=== PATIENT | male | born 1960 | race Caucasian/White ===

== ENCOUNTER 2019-12-25 01:46 | Outpatient (CLI) | payer OTHER, SELFPAY ==
--- NOTE | 2019-12-25 15:15 | DI.MRI_ITS ---
EXAM: MR UPPER JOINT LT WO CLINICAL HISTORY: consider RC tear M75.42 IMPINGEMENT SYNDROME OF LT SHOULDER. TECHNIQUE: Multiplanar multisequence MRI was performed. COMPARISON: No exams were available for comparison FINDINGS: The exam was limited by patient motion. Patient was in pain during the exam. Accelerated protocol was performed. There is a moderate-sized joint effusion. Fluid is also seen in the subcoracoid and subacromial subdeltoid bursa. There are degenerative changes of the AC joint. There is abnormal th ickening of the supraspinatus tendon. There is a superimposed small full-thickness tear in the mid p ortion. There is fluid seen extending along the infraspinatus tendon but no evidence of a tear. The subscapularis and biceps tendons appear intact. There are degenerative changes of the inferior yoselin oid. There is mild muscle atrophy of the supraspinatus. IMPRESSION: Severe tendinosis of the supraspinatus tendon. Focal full-thickness tear in the mid portion. Mild mu scle atrophy. DATA REPOSITORY:
== END 2019-12-25 02:06 ==
PROVIDERS: PCP Family Medicine; Visit Provider Nurse Practitioner Family
DX: M25.512 Pain in left shoulder (principal); M75.42 Impingement syndrome of left shoulder; M75.82 Other shoulder lesions, left shoulder; M25.412 Effusion, left shoulder; M75.102 Unspecified rotator cuff tear or rupture of left shoulder, not specified as traumatic
CPT/HCPCS: 73221

== ENCOUNTER 2020-03-02 12:57 | Outpatient (CLI) | payer OTHER, SELFPAY ==
--- NOTE | 2020-03-02 10:47 | DI.RAD_ITS ---
EXAM: XR SHOULDER LT COMPLETE 2+V CLINICAL HISTORY: left shoulder bursitis TECHNIQUE: COMPARISON: No exams were available for comparison FINDINGS: Two views were obtained. There is narrowing of the cartilaginous joint space of the glenohumeral sofya nt, there appears to be some chondrocalcinosis. There is some irregularity of the sub chondral artic ular surface of the glenoid. Humeral head appears well maintained as visualized. Moderate osteophyt e formation noted at the acromioclavicular joint. IMPRESSION: Degenerative changes of glenohumeral and AC joint as described above.
== END 2020-03-02 13:17 ==
PROVIDERS: PCP Family Medicine; Visit Provider Student in an Organized Health Care Education/Training Program
DX: M25.512 Pain in left shoulder (principal); M75.52 Bursitis of left shoulder; M19.012 Primary osteoarthritis, left shoulder
CPT/HCPCS: 73030

== ENCOUNTER 2020-03-08 09:38 | Outpatient (CLI) | payer BC, SELFPAY ==
[2020-03-09 18:03] LABS: COVID-19 RT-PCR Result NEGATIVE (Negative)
== END 2020-03-08 09:58 ==
PROVIDERS: PCP Family Medicine; Visit Provider Student in an Organized Health Care Education/Training Program
DX: Z11.59 Encounter for screening for other viral diseases (principal); Z01.818 Encounter for other preprocedural examination
CPT/HCPCS: U0003

== ENCOUNTER 2020-03-11 05:52 | Day surgery (SDC) | payer OTHER, SELFPAY ==
[2020-03-11] VITALS (9 sets, daily range): BP systolic 93–122; BP diastolic 50–89; PULSE 60–70; RESP 16–30; TEMP 36.4–36.7; O2SAT 92–98
[2020-03-11] MEDS: Lactated Ringers 1,000 ML 100 ML IV ×2 (06:50→11:25)
[2020-03-11] MEDS: ceFAZolin 2 GM/50 ML BAG IVPB (07:44)
[2020-03-11] MEDS: EPINEPHrine 30 MG/30 ML VIAL (09:28)
[2020-03-11] MEDS: oxyCODONE 5 MG TAB PO (13:10)
--- NOTE | 2020-03-11 13:52 | PDOC.DSDIS_ITS ---
Discharge Plan Disposition Patient Disposition: HOME Condition: Stable Discharge Details Reason For Visit: Left shoulder surgery Attending Provider: Miquel Bernard Primary Care Provider: Hugh Vázquez Home Meds and New Rx's Prescriptions: New ibuprofen 800 mg tablet 800 mg PO BID PRN (Reason: pain, moderate) Qty: 60 RF: 0 oxycodone 5 mg tablet 5 - 10 mg PO Q4H PRN (Reason: moderate to severe pain) Qty: 22 RF: 0 Continued metoprolol succinate 50 mg capsule,sprinkle,ER 24hr 50 mg PO DAILY RF: 0 lisinopril 20 mg tablet 20 mg PO DAILY RF: 0 atorvastatin 80 mg tablet 80 mg PO DAILY RF: 0 aspirin [Adult Low Dose Aspirin] 81 mg tablet,delayed release (DR/EC) 81 mg PO DAILY RF: 0 morphine 30 mg capsule, ER multiphase 24 hr 30 mg PO DAILY RF: 0 albuterol sulfate [ProAir HFA] 90 mcg/actuation HFA aerosol inhaler 2 puff IH 6XD RF: 0 Spiriva with HandiHaler 18 mcg capsule, w/inhalation device 1 cap IH DAILY RF: 0 budesonide-formoterol [Symbicort] 80-4.5 mcg/actuation HFA aerosol inhaler 2 puff IH BID RF: 0 Trelegy Ellipta 100-62.5-25 mcg blister with device 1 inh IH DAILY RF: 0 atorvastatin 10 mg tablet 10 mg PO DAILY RF: 0 Discontinued oxycodone 15 mg tablet 15 mg PO QID PRNRF: 0 ibuprofen 800 mg tablet 800 mg PO TID RF: 0 Discharge Instructions Additional Instructions: Surgery: Shoulder arthroscopy with rotator cuff repair and biceps tenodesis Activity: You should keep your arm at your side in a neutral position at all times except for physical therapy. Do not try to lift or raise your arm using your own muscles. You should use the sling whenever you are out of the house. You may have to adjust the abduction pillow or remove it for comfort. At home it is best to remove the sling and rest the arm on a pillow at your side or support the operative side with your other hand. You may allow the arm to dangle at your side. A physical therapy prescription will be provided separately today. Prescriptions: Resume home dose Aspirin 81 mg take 1 daily to prevent a blood clot Ibuprofen 800 mg take 1 every 12 hours with a meal as needed for moderate pain Oxycodone 5 mg take 1-2 every 4-6 hours as needed for severe pain You may use [id number] Tylenol (acetaminophen) as needed for mild pain. These pain medications may be taken all at once or in different combinations as needed. Also, recommend Colace (docusate) as a stool softener as surgery and pain medicine cause constipation. Dressings: Leave dressing in place for 2-3 days. May then remove and leave open to air or cover incisions with Band-Aids. May shower after 5 days. Follow-up: 10-[address] Bernard Please call the office during business hours with any questions or concerns. Let us know right away if you develop any redness, drainage, fevers, chest pain, or trouble breathing. Do not drink alcohol or drive for at least 24 hours after anesthesia. Stand Alone Forms: Anes.Nerve Block Instructions, Nicholas Rizvi (DSU) Referrals: Miquel Bernard MD [ [facility] STAFF PHYSICIAN] - Discharge Orders Discharge Orders: Discharge Order (Routine); Ordered 03/11/20 Ordered By: Miquel Bernard DS: Diagnosis Discharge Diagnosis (1) Impingement syndrome of left shoulder: Status: Acute (2) Bursitis of left shoulder: Status: Acute (3) Left rotator cuff tear: Status: Acute (4) Tendinitis of long head of biceps brachii of left shoulder: Status: Acute
--- NOTE | 2020-03-11 14:38 | ROE_ITS ---
Date of service: 03/11/20 Time of Service: 14:19 Operative Note Operative Note DATE OF PROCEDURE: 03/11/20 PRE-OP DIAGNOSIS: Left: 1. Rotator cuff tear 2. LHB tendinopathy 3. Bursitis 4. Impingement POST-OP DIAGNOSIS: other Left: 1. Rotator cuff tear 2. LHB tendinopathy/ partial tear 3. Bursitis 4. Impingement 5. SLAP tear PROCEDURE: Left: 1. Extensive debridement, CPT# 53562. This involved using arthroscopic hand instruments, power instruments, and radiofrequency instruments to partially released thickened MGHL, tenotomize biceps tendon, and debride areas of labral tearing, synovitis anteriorly, superiorly, and posteriorly. A few small loose bodies were removed using the arthroscopic shaver likely combination of frayed tendon, labrum, and chondral pieces. 2. Open biceps tenodesis, CPT# 70990. This involved reattaching the long head of the biceps tendon to the proximal humerus in the sub-pectoral area of the bicipital groove at the correct tension. 3. Subacromial decompression with partial acromioplasty, CPT# 90659. This involved using arthroscopic power instruments and a radiofrequency wand to complete a bursectomy and remove bone spurs on the undersurface of the acromion. 4. Rotator cuff repair, CPT# 91788. This involved repair of the supraspinatus using anchors and sutures to reattach the rotator cuff back to the tendon remnant and footprint of the greater tuberosity. The bilingual sales assistant was medically required in order to help assist in techniques above, which require positioning the arm, holding the arthroscope, and manipulating 2 to 4 instruments and sutures at the same time. This cannot be done without the help of an experienced bilingual sales assistant. SURGEON: Miquel Bernard DERRICK OPERATOR: Lily Cornejo ANESTHESIA: GETA and regional ESTIMATED BLOOD LOSS: 15 PATHOLOGY: none sent COMPLICATIONS: None Patient was transported to: PACU Patient's condition: stable Implants: Arthrex: 4.75mm SwiveLocks x 2 and Unicortical Proximal Biceps Tenodesis Button Indications: The patient was diagnosed with the above conditions and appropriately indicated for surgical intervention. Please see complete medical record for details. Findings: Exam under anesthesia: Full symmetrical range of motion without instability Glenohumeral joint: Profound synovitis anteriorly and posteriorly. Partial long head of the biceps tendon tearing and fraying and biceps anchor disruption/SLAP tear. Thickened MGHL. Intact subscapularis. Supraspinatus fraying at the articular margin but no exposed footprint with full-thickness intra-tendinous tear more medially and posteriorly. Moderately sized area grade II-III chondrom alacia anterior central glenoid. Small area of grade I-II chondromalacia posterior humeral head. Subacromial space: Moderate bursitis. Moderate subacromial bone spur. Moderately sized medial full-thickness trans-tendinous supraspinatus tear with greater tuberosity footprint covered by intact tendon remnant. Relatively good tendon tissue quality. Intact anterior supraspinatus. Significantly thickened posterior supraspinatus. Intact infraspinatus. Procedure Description: The patient was taken to the operating room and transferred to the operating room table. General anesthesia was induced. While under anesthesia, bilateral shoulders were examined. The patient was positioned in the beachchair position. All bony prominences were well-padded. Preoperative antibiotics were administered. The shoulder was prepped and draped in the usual sterile fashion. The correct patient, procedure, and side of the procedure were all verified prior to incision. Starting through the posterior portal a standard complete diagnostic arthroscopy was performed of the glenohumeral joint including inspection of the long head of the biceps, anterior and superior labrum, subscapularis tendon, supraspinatus and infraspinatus tendons, and axillary recess. Extensive debridement had to be performed to allow visualization and to remove pathology as above. The glenoid and humeral head cartilage as well as the posterior labrum were inspected from an anterior viewing portal. Significant findings noted above. The biceps tendon was tenotomized from the labrum using arthroscopic scissors. 10 cc of 0.5% bupivacaine with epinephrine was infiltrated about a 2 to 3 cm longitudinal incision at the inferior margin of the pectoralis major localized over the long head of the biceps tendon. Blunt and sharp dissection were used to expose the tendon in the bicipital groove. The tendon was brought out of the wound and kept off the skin on top of a blue towel. The correct location for sub-pectoral fixation was localized, prepped with a rasp, and then drilled with a 3.2 mm drill pin in a unicortical fashion. Using a fiber loop suture the tendon was prepped from the musculotendinous junction a few centimeters proximal. The excess tendon was amputated. The free suture ends were then passed through the unicortical button implant. The drill pin was removed and the implant was placed into the humeral intramedullary canal. The button was flipped and the sutures were tensioned bringing the tendon down to bone. Tension and fixation were then tested and found to be appropriate. The sutures were passed superficial to the tendon and the free ends of the suture were were tied compressing tendon to the humerus. The wound was copiously irrigated with normal saline. Subcutaneous tissue was closed using 3-0 Monocryl in a buried interrupted fashion. Skin was closed using 3-0 Monocryl in a buried subcuticular running fashion. Skin glue was applied over the incision. Mastisol was applied about the incision. The incision was covered with Telfa, gauze, and covered with a Tegaderm dressing. Starting through the posterior portal, the arthroscope was directed into the subacromial space. A lateral 50 yard line lateral portal was created. A combination of power instruments and a radiofrequency ablator were used to debride bursitis anteriorly, posteriorly, and laterally as well as expose and smooth bone spurring on the undersurface of the acromion. The coracoacromial ligament was partially released. The bursectomy was completed viewing laterally and working from posteriorly and the rotator cuff was thoroughly inspected with findings noted above. Cannulas were inserted at the posterior anterior lateral margin of the acromion as well as at the lateral 50 yard line portal. The rotator cuff tear was inspected and debrided of frayed tissue at the margins exposing a full-thickness moderately sized medial trans-tendinous supraspinatus tear. I rotator cuff grasper immobilizer were used to confirm appropriate mobility of the medial tissue. The greater was tuberosity actually completely covered with lateral healthy tendon remnant and would have had to be exposed to allow for medial row anchor placement. The decision was made to preserve the lateral tendon remnant and perform a necb-wh-thlu tendon repair augmented to a lateral row. I felt this would also minimize the chance of shortening the rotator cuff and causing stiffness. Starting at the anterior margin of the tear, a suture passer was used to pass a fiber tape in a horizontal mattress fashion in the medial tendon tissue. A self retrieving suture passer was then used to place a sutures tape just medial to the horizontal mattress in cinch mode acting like a ripstop suture. Using a suture handoff technique a BirdBeak was passed through the lateral tendon remnant and retrieve the suture tape from the tear margin. This was repeated in the posterior margin of the tear. The rigid laterally placed cannula and gentle traction was used to confirm anatomic appearing reduction through the combination of horizontal mattress suture and ripstop cinch suture pairs. A punch was used to localize the posterior lateral row anchor just lateral to the greater tuberosity and the swivel lock anchor was inserted with the free ends of the posterior FiberTape and suture tape appropriately tensioned. This was repeated for the anterior lateral row anchor. There was excellent reduction of the trans-tendinous tear with low tension tendon to tendon apposition. The repair was inspected through shoulder range of motion and found to be stable with secure fixation. The shoulder was drained of arthroscopic fluid. All portal sites were copiously irrigated. These incisions were closed using 3-0 Monocryl in a buried fashion, covered with Mastisol, Steri-Strips, Xeroform, dry gauze, and ABDs. The dressings were covered and secured with Medipore tape. The operative extremity was placed into a sling for immobilization. The patient awoke from anesthesia without complication and was transferred to the recovery room in a stable condition.
== END 2020-03-11 14:25 | disposition home or self-care (01) ==
PROVIDERS: PCP Family Medicine; Visit Provider Student in an Organized Health Care Education/Training Program
PROC: (CPT 29827; principal; 2020-03-11 07:30)
PROC: (CPT 23430; 2020-03-11 07:30)
DX: S46.012A Strain of muscle(s) and tendon(s) of the rotator cuff of left shoulder, initial encounter (principal); M75.42 Impingement syndrome of left shoulder; M75.52 Bursitis of left shoulder; M75.22 Bicipital tendinitis, left shoulder; S43.432A Superior glenoid labrum lesion of left shoulder, initial encounter; X58.XXXA Exposure to other specified factors, initial encounter; Y99.0 Civilian activity done for income or pay; M94.212 Chondromalacia, left shoulder; G89.18 Other acute postprocedural pain; I10 Essential (primary) hypertension
CPT/HCPCS: 29827; 29823; 29826; 23430; 76942; L3670; J0690; J1100; J1885; J2001; J2250; J2405; J2704; J3010